=== PATIENT | female | born 1980 | race Caucasian/White ===

== ENCOUNTER 2016-11-29 15:55 | Emergency (ER) | payer OTHER ==
[~2016-11-29] VITALS: Ht 167.6 cm; Wt 61.2 kg
[2016-11-29 15:55] VITALS: BP_SYST 140
[2016-11-29 17:20] LABS: BILIRUBIN,URINE NEGATIVE (NEGATIVE); CLARITY/URINE CLEAR (CLEAR); COLOR,URINE YELLOW (YELLOW); GLUCOSE,URINE NEGATIVE (NEGATIVE); KETONES,URINE NEGATIVE (NEGATIVE); LEUKOCYTE ESTERASE ,URINE 1+ (NEGATIVE); NITRITE, URINE NEGATIVE (NEGATIVE); PROTEIN URINE NEGATIVE (NEGATIVE); UROBILINOGEN,URINE 0.2 (0.2-1.0)
[2016-11-29 17:21] LABS: BLOOD, URINE TRACE (NEGATIVE)
[2016-11-29 17:27] LABS: BACTERIA,URINE FEW /HPF (None Seen); MUCUS,URINE None Seen /LPF (None Seen)
[2016-11-29] MEDS ORDERED: AZITHROMYCIN 250 MG TABLET PO ONE (18:15)
[2016-11-29] MEDS ORDERED: cefTRIAXone 250 MG VIAL IM ONE (18:15)
[2016-11-29] MEDS ORDERED: cefTRIAXone 250 MG in LIDOCAINE 1%, 20 ML MDV 0.9 ML IM ONE (18:30)
[2016-11-29] MEDS ORDERED: metroNIDAZOLE 500 MG TABLET PO ONE (18:30)
[2016-11-29 18:48] VITALS: BP_SYST 124
[2016-11-30 23:14] LABS: CHLAMYDIA TRACHOMATIS NAA Negative (Negative); NEISSERIA GONORRHOEAE NAA Negative (Negative)
== END 2016-11-29 18:48 | disposition home or self-care (01) ==
LOC: SED 15:55
DX: A59.01 Trichomonal vulvovaginitis (principal); N39.0 Urinary tract infection, site not specified; N73.9 Female pelvic inflammatory disease, unspecified; L25.9 Unspecified contact dermatitis, unspecified cause; F17.210 Nicotine dependence, cigarettes, uncomplicated; J44.9 Chronic obstructive pulmonary disease, unspecified; Z71.6 Tobacco abuse counseling; Z98.51 Tubal ligation status
CPT/HCPCS: 81000; 81025; 87086; 87210; 87491; 87591; 96372; 99284; J0696; Q0144

== ENCOUNTER 2018-05-30 11:23 | Emergency (ER) | payer MEDICAID, OTHER ==
[~2018-05-30] VITALS: Ht 167.6 cm; Wt 62.1 kg
[2018-05-30 12:00] VITALS: BP_SYST 124
--- NOTE | 2018-05-30 12:10 | NUR ---
Patient to ER bed 7 to gown for evaluation. Side rails up.
--- NOTE | 2018-05-30 12:15 | NUR ---
Pt presents to ED c/o bump on R buttock x 2 days. Pt h/o I&D on L buttock. Treated wound dry and intact no s/s infection. Pt has erythema w induration approx. 4cm x 4cm approx 1.25 cm in depth. Hot to touch and painful
--- NOTE | 2018-05-30 12:40 | NUR ---
ER at bedside examining patient.
[2018-05-30] MEDS ORDERED: LIDOCAINE 1% 10 MG/ML, 20 ML MDV INJ ONE (12:45)
--- NOTE | 2018-05-30 13:00 | NUR ---
I & D done pt tolerated well.
[2018-05-30 13:33] VITALS: BP_SYST 128
--- NOTE | 2018-05-30 13:33 | NUR ---
Patient given written and verbal discharge instructions and verbalizes understanding. ER MD discussed with patient the results and treatment provided. Patient in stable condition. ID arm band removed. Rx of [place],Bactrim given. Patient educated on pain management and to follow up with PMD. Pain Scale 3. Opportunity for questions provided and answered. Medication side effect fact sheet provided.
== END 2018-05-30 13:33 | disposition home or self-care (01) ==
LOC: SED 11:23
DX: L02.31 Cutaneous abscess of buttock (principal); J44.9 Chronic obstructive pulmonary disease, unspecified
CPT/HCPCS: 10060; 99283; J2001

== ENCOUNTER 2018-06-01 10:19 | Emergency (ER) | payer MEDICAID ==
[~2018-06-01] VITALS: Ht 167.6 cm; Wt 62.1 kg
[2018-06-01 10:20] VITALS: BP_SYST 134
--- NOTE | 2018-06-01 10:25 | NUR ---
Patient triaged and placed in waiting room. VSS and patient appears in no acute distress at this time. Accompanied by SELF, awaiting available bed, and MD notified of need for MSE.
--- NOTE | 2018-06-01 11:49 | NUR ---
BROUGHT BACK TO BED #3 AND TRIAGED. REPORT GIVEN TO YESENIA
--- NOTE | 2018-06-01 11:57 | NUR ---
TAVO SANTA at bedside examining patient.
[2018-06-01] MEDS ORDERED: cefTRIAXone 1 GM in LIDOCAINE 1%, 20 ML MDV 2.1 ML IM ONE (12:00)
[2018-06-01] MEDS ORDERED: IBUPROFEN 600 MG TABLET PO ONE (12:00)
--- NOTE | 2018-06-01 12:00 | NUR ---
PATIENT LAYING IN BED AND WAS WAITING FOR WOUND TO BE CHECKED BY DR. PATIENT CAME IN 2 DAYS AGO FOR IT. PATIENT STATES SHE HAD A LUMP ON RIGHT BUTT CHEEK AND IT WAS REMOVED. PATIENT NOW COMPLAINING OF BUMP ON LEFT BUTTOCKS FROM FALLING ON [place] NAIL [address] EXAMINED BOTH. PATIENT ALERT AND ORIENTED X4 NOT COMPLAINING OF SHORTNESS OF BREATH, NAUSEA, OR VOMITING.
[2018-06-01] MEDS ORDERED: cefTRIAXone 1 GM VIAL ONE (12:27)
--- NOTE | 2018-06-01 13:21 | NUR ---
Patient given written and verbal discharge instructions and verbalizes understanding. TAVO Wheeler MD discussed with patient the results and treatment provided. Patient in stable condition. ID arm band removed. Rx of Motrin, Kefelx, bacitracin given. Patient educated on pain management and to follow up with PMD. Pain Scale 2/10 tolerable for patient. Opportunity for questions provided and answered. Medication side effect fact sheet provided.
[2018-06-01 13:23] VITALS: BP_SYST 134
== END 2018-06-01 13:21 | disposition home or self-care (01) ==
LOC: SED 10:19
DX: L02.31 Cutaneous abscess of buttock (principal); E11.40 Type 2 diabetes mellitus with diabetic neuropathy, unspecified; R03.0 Elevated blood-pressure reading, without diagnosis of hypertension; J44.9 Chronic obstructive pulmonary disease, unspecified
CPT/HCPCS: 96372; 99283; J0696